=== PATIENT | male | born 1975 | race Caucasian/White ===

== ENCOUNTER 2016-07-05 19:00 | Outpatient (CLI) | payer OTHER | END 2016-07-05 19:01 | disposition home or self-care (01) | DX: M79.605 Pain in left leg (principal); M79.604 Pain in right leg; S80.12XA Contusion of left lower leg, initial encounter; S80.11XA Contusion of right lower leg, initial encounter ==

== ENCOUNTER 2020-06-02 08:00 | Outpatient (CLI) | payer MEDICAID, OTHER ==
[2020-06-02 18:05] LABS: BASOPHILS # (AUTO) 0.1 10^3/uL (0.0-0.1); BASOPHILS % (AUTO) 1.6 %; EOSINOPHILS # (AUTO) 0.1 10^3/uL (0.0-0.7); EOSINOPHILS % (AUTO) 1.9 %; HGB - HEMOGLOBIN 14.2 g/dL (14.0-18.0); LYMPHOCYTES # (AUTO) 1.7 10^3/uL (1.5-3.5); LYMPHOCYTES % (AUTO) 29.6 %; MEAN CORPUSCULAR HEMOGLOBIN 33.3 pg (27.0-31.0); MEAN CORPUSCULAR HGB CONC 33.4 g/dL (32.0-36.0); MEAN CORPUSCULAR VOLUME 99.8 fL (80.0-94.0); MONOCYTES # (AUTO) 0.4 10^3/uL (0.0-1.0); MONOCYTES % (AUTO) 7.6 %; NEUTROPHILS # (AUTO) 3.3 10^3/uL (1.5-6.6); NEUTROPHILS % (AUTO) 58.9 %; PLT - PLATELET COUNT 256 10^3/uL (130-450); RED BLOOD COUNT 4.26 10^6/uL (4.70-6.10); RED CELL DISTRIBUTION WIDTH 12.9 % (12.0-15.0); WHITE BLOOD COUNT 5.7 x10^3/uL (4.8-10.8)
[2020-06-02 18:24] LABS: ALBUMIN 3.7 g/dL (3.2-5.5); ALBUMIN/GLOBULIN RATIO 1.3 (1.0-2.2); ALKALINE PHOSPHATASE 84 IU/L (42-121); ALT ALANINE AMINOTRANSFERASE 44 IU/L (10-60); AMYLASE 40 U/L (28-100); AST ASPARTATE AMINOTRANSFERASE 62 IU/L (10-42); BUN - BLOOD UREA NITROGEN 14 mg/dL (6-20); CALCIUM 8.7 mg/dL (8.5-10.3); CARBON DIOXIDE - CO2 21 mmol/L (21-32); CHLORIDE 105 mmol/L (101-111); CHOL/HDL RATIO 5.2 (<5.0); CHOLESTEROL 201 mg/dL; GLUCOSE 101 mg/dL (70-100); HDL CHOLESTEROL 39 mg/dL; LIPASE 48 U/L (22-51); SODIUM 134 mmol/L (135-145); TOTAL PROTEIN 6.6 g/dL (6.7-8.2)
[2020-06-02 18:53] LABS: LDL CHOLESTEROL,DIRECT 76 mg/dL; LDLD/HDL RATIO 1.9 (<3.6)
[2020-06-02 20:45] LABS: HEMOGLOBIN A1c% 5.5 % (4.27-6.07)
== END 2020-06-02 23:59 | disposition home or self-care (01) ==
LOC: LAB.WCP 08:00
PROVIDERS: ATTEND Registered Nurse
DX: R73.01 Impaired fasting glucose (principal); E78.5 Hyperlipidemia, unspecified; I10 Essential (primary) hypertension; F10.20 Alcohol dependence, uncomplicated; K21.9 Gastro-esophageal reflux disease without esophagitis; R63.5 Abnormal weight gain; R11.2 Nausea with vomiting, unspecified; F17.200 Nicotine dependence, unspecified, uncomplicated
CPT/HCPCS: 36415; 80053; 80061; 82150; 83036; 83690; 83721; 84443; 85025

== ENCOUNTER 2020-06-02 15:37 | Outpatient (CLI) | payer MEDICAID ==
--- NOTE | 2020-06-03 14:58 | XRAY Report ---
PROCEDURE: Abdomen 2 View X-Ray INDICATIONS: NAUSEA AND VOMITING TECHNIQUE: 1 view of the abdomen were acquired. COMPARISON: None FINDINGS: Surgical changes and devices: None. Bowel: No pneumoperitoneum. The bowel gas pattern is normal. Scattered stool is present. Soft tissues: No masses; visualized solid organ contours appear normal in size. No suspicious abdom inal calcifications. Bones: No suspicious bony abnormalities. IMPRESSION: Scattered stool without obstruction. Reviewed by: Homa Chinchilla MD on 06/03/2020 2:56 PM [facility] Approved by: Homa Chinchilla MD on 06/03/2020 2:56 PM [facility] Station ID: [id number]
== END 2020-06-02 15:38 | disposition home or self-care (01) ==
LOC: DI.N 15:37
PROVIDERS: ATTEND Registered Nurse
DX: R11.2 Nausea with vomiting, unspecified (principal); E78.5 Hyperlipidemia, unspecified; I10 Essential (primary) hypertension; R73.01 Impaired fasting glucose; K21.9 Gastro-esophageal reflux disease without esophagitis; R63.5 Abnormal weight gain; F10.20 Alcohol dependence, uncomplicated; F17.200 Nicotine dependence, unspecified, uncomplicated
CPT/HCPCS: 36415; 80053; 80061; 82150; 83036; 83690; 83721; 84443; 85025

== ENCOUNTER 2020-08-30 09:50 | Day surgery (SDC) | payer OTHER, MEDICAID ==
--- NOTE | 2020-08-30 10:31 | ANESTHESIA ---
Pre-Anesthesia VS, & Labs - Diagnosis change in bowel habits - Procedure colonoscopy Vital Signs: Temp Pulse Resp BP Pulse Ox 36.3 C L 103 H 16 135/79 H 97 08/30/20 10:16 08/30/20 10:16 08/30/20 10:16 08/30/20 10:16 08/30/20 10:16 Height: 6 ft Weight (kg): 112.3 kg Body Mass Index: 33.5 BMI Classification: Obese - NPO >8 hours Home Medications and Allergies Home Medications: Ambulatory Orders Atorvastatin [Lipitor] 20 mg PO DAILY PM 08/27/20 Chlorthalidone 12.5 mg PO DAILY 08/27/20 Lisinopril [Zestril] 20 mg PO DAILY PM 08/27/20 Losartan [Cozaar] 50 mg PO DAILY PM 08/27/20 buPROPion HCL [Bupropion Xl] 150 mg PO DAILY 08/27/20 Atorvastatin [Lipitor] 20 mg PO DAILY PM 08/27/20 Chlorthalidone 12.5 mg PO DAILY 08/27/20 Lisinopril [Zestril] 20 mg PO DAILY PM 08/27/20 Losartan [Cozaar] 50 mg PO DAILY PM 08/27/20 buPROPion HCL [Bupropion Xl] 150 mg PO DAILY 08/27/20 Allergies/Adverse Reactions: Allergies Allergy/AdvReac Type Severity Reaction Status Date / Time Penicillins Allergy Severe Nausea Verified 08/27/20 13:52 Seafood Allergy Anaphylaxis Uncoded 08/27/20 13:52 Anes History & Medical History - Anesthetic History Anesthesia Complications: reports: No previous complications Family history of Anesthesia Complications: Denies Family history of Malignant Hyperthermia: Denies - Medical History Cardiovascular: reports: Hypertension, High cholesterol Pulmonary: reports: None Gastrointestinal: reports: Other Urinary: reports: None Musculoskeletal: reports: None Endocrine/Autoimmune: reports: None Skin: reports: None Smoking Status: Current every day smoker - Surgical History General: reports: Hiatal hernia repair Exam General: Alert, Oriented x3, Cooperative Dental: WNL Mouth Openin Fingerbreadth Neck Mobility: Normal Mallampati classification: II Thyromental Distance: 4-6 cm Respiratory: Lungs clear Cardiovascular: Regular rate Abdomen: Normal bowel sounds Extremities: No clubbing Neurological: Normal gait Mental/Cognitive Status: Alert/Oriented X3 Cognitive Status: Within normal limits Plan Anesthesia Type: General, Total IV Consent for Procedure(s) Verified and Reviewed: Yes Code Status: Attempt Resuscitation ASA classification: 2-Mild systemic disease Is this case an emergency?: No
[2020-08-30] MEDS ORDERED: fentaNYL 100 MCG/2 ML VIAL IVP PRN (10:32)
[2020-08-30] MEDS ORDERED: ePHEDrine 50 MG/ML VIAL IVP PRN (10:32)
[2020-08-30] MEDS ORDERED: ATROPINE ABBOJECT 1 MG/10 ML SYRINGE IVP PRN (10:32)
[2020-08-30] MEDS ORDERED: NALOXONE 0.4 MG/ML VIAL IVP PRN (10:32)
[2020-08-30] MEDS ORDERED: HYDROmorphone 0.5 MG/0.5 ML SYRINGE IVP PRN (10:32)
[2020-08-30] MEDS ORDERED: ONDANSETRON 4 MG/2 ML VIAL IVP PRN (10:32)
[2020-08-30] MEDS ORDERED: MORPHINE 2 MG/ML CARPUJECT IVP PRN (10:32)
[2020-08-30] MEDS ORDERED: LIDOCAINE-MPF 2% 5 ML VIAL ONE (10:51)
[2020-08-30] MEDS ORDERED: PROPOFOL 500 MG/50 ML 500 MG/50 ML VIAL ONE (10:51)
[2020-08-30] MEDS ORDERED: MIDAZOLAM 2 MG/2 ML VIAL ONE (10:51)
[2020-08-30] MEDS ORDERED: LACTATED RINGERS 1,000 ML IV SCH (11:00)
--- NOTE | 2020-08-30 11:07 | HISTORY & PHYSICAL EXAMINATION ---
Chief Complaint - Chief Complaint Chief Complaint: sister from colon cancer History of Present Illness - History Obtained From Records Reviewed: yes History obtained from: pt Exam Limitations: none - History of Present Illness HPI Comment/Other: Family history early onset colon cancer. Genetics unknown History - Past Medical History Cardiovascular: reports: Hypertension, High cholesterol Respiratory: reports: None Endocrine/Autoimmune: reports: None GI: reports: Other : reports: None HEENT: reports: None Musculoskeletal: reports: None Derm: reports: None MRSA Hx?: No - Past Surgical History General: reports: Hiatal hernia repair - POLST Patient has POLST: No Meds/Allgy - Home Medications Home Medications: Ambulatory Orders Medication Instructions Recorded Confirmed Atorvastatin [Lipitor] 20 mg PO DAILY PM 08/27/20 08/27/20 Chlorthalidone 12.5 mg PO DAILY 08/27/20 08/27/20 Lisinopril [Zestril] 20 mg PO DAILY PM 08/27/20 08/27/20 Losartan [Cozaar] 50 mg PO DAILY PM 08/27/20 08/27/20 buPROPion HCL [Bupropion Xl] 150 mg PO DAILY 08/27/20 08/27/20 - Allergies Allergies/Adverse Reactions: Allergies Allergy/AdvReac Type Severity Reaction Status Date / Time Penicillins Allergy Severe Nausea Verified 08/27/20 13:52 Seafood Allergy Anaphylaxis Uncoded 08/27/20 13:52 Review of Systems - Constitutional Constitutional: reports: Fatigue (10 pt ros as above otherwise unremarkable) Exam - Vital Signs Reviewed Vital Signs: Yes Vital Signs: Vital Signs x48h Temp Pulse Resp BP Pulse Ox 08/30/20 10:16 36.3 C L 103 H 16 135/79 H 97 - Physical Exam General Appearance: positive: No acute distress, Alert Eyes Bilateral: positive: Normal inspection, PERRL, EOMI ENT: positive: No signs of dehydration Neck: positive: Nml inspection, No JVD Respiratory: positive: No respiratory distress, Breath sounds nml Cardiovascular: positive: Regular rate & rhythm Abdomen: positive: Non-tender, No distention Neurologic/Psychiatric: positive: Oriented x3 Conclusion/Plan - Problem List (1) FHx: colon cancer Conclusion/Plan: plan colonoscopy. parq held and consent obtained
[2020-08-30] MEDS ORDERED: PROPOFOL 200 MG/20 ML VIAL IVP ONE ×2 (11:26→11:39)
[2020-08-30] MEDS ORDERED: LACTATED RINGERS 1,000 ML IV ONE (12:00)
[2020-08-30 12:31] VITALS: BP 110/63
--- NOTE | 2020-08-30 12:44 | ANESTHESIA POST OP EVALUATION ---
Anesthesia Post Eval - Post Anesthesia Eval Vitals: Last Vital Signs Temp 36.5 C 08/30/20 12:25 Pulse 89 08/30/20 12:25 Resp 16 08/30/20 12:25 BP 110/63 08/30/20 12:25 Pulse Ox 97 08/30/20 12:25 CV Function Including HR & BP: Stable Pain Control: Satisfactory Nausea & Vomiting: Negative Mental Status: Baseline Respiratory Status: Airway Patent Hydration Status: Satisfactory Anesthesia Complications: None
== END 2020-08-30 09:51 | disposition home or self-care (01) ==
LOC: SDS 09:50
PROVIDERS: ATTEND Internal Medicine Gastroenterology
PROC: 0DBL8ZZ Excision of Transverse Colon, Via Natural or Artificial Opening Endoscopic (ICD-10-PCS; 2020-08-30)
PROC: 0DBK8ZX Excision of Ascending Colon, Via Natural or Artificial Opening Endoscopic, Diagnostic (ICD-10-PCS; principal; 2020-08-30 11:00)
DX: R19.4 Change in bowel habit (principal); D12.2 Benign neoplasm of ascending colon; D12.3 Benign neoplasm of transverse colon; D17.79 Benign lipomatous neoplasm of other sites; I10 Essential (primary) hypertension; F10.20 Alcohol dependence, uncomplicated; E66.9 Obesity, unspecified; Z68.33 Body mass index [BMI] 33.0-33.9, adult; F17.200 Nicotine dependence, unspecified, uncomplicated; Z80.0 Family history of malignant neoplasm of digestive organs
CPT/HCPCS: 45385; J7120

== ENCOUNTER 2022-02-22 17:00 | Outpatient (CLI) | payer OTHER, MEDICAID ==
[2022-02-22 20:37] LABS: BASOPHILS # (AUTO) 0.1 10^3/uL (0.0-0.1); BASOPHILS % (AUTO) 1.3 %; EOSINOPHILS # (AUTO) 0.1 10^3/uL (0.0-0.7); EOSINOPHILS % (AUTO) 1.3 %; HCT - HEMATOCRIT 42.9 % (42.0-52.0); HGB - HEMOGLOBIN 15.5 g/dL (14.0-18.0); LYMPHOCYTES % (AUTO) 28.4 %; MEAN CORPUSCULAR HEMOGLOBIN 35.2 pg (27.0-31.0); MEAN CORPUSCULAR HGB CONC 36.1 g/dL (32.0-36.0); MEAN CORPUSCULAR VOLUME 97.5 fL (80.0-94.0); MEAN PLATELET VOLUME 9.7 fL (7.4-11.4); MONOCYTES # (AUTO) 0.6 10^3/uL (0.0-1.0); MONOCYTES % (AUTO) 8.2 %; NEUTROPHILS # (AUTO) 4.2 10^3/uL (1.5-6.6); NEUTROPHILS % (AUTO) 60.5 %; PLT - PLATELET COUNT 182 10^3/uL (130-450)
[2022-02-22 20:52] LABS: ALBUMIN 3.8 g/dL (3.2-5.5); ALBUMIN/GLOBULIN RATIO 1.2 (1.0-2.2); ALKALINE PHOSPHATASE 99 IU/L (42-121); ALT ALANINE AMINOTRANSFERASE 114 IU/L (10-60); AST ASPARTATE AMINOTRANSFERASE 158 IU/L (10-42); BILIRUBIN,TOTAL 1.4 mg/dL (0.2-1.0); BUN - BLOOD UREA NITROGEN 13 mg/dL (6-20); CALCIUM 8.8 mg/dL (8.5-10.3); CARBON DIOXIDE - CO2 27 mmol/L (21-32); CHLORIDE 97 mmol/L (101-111); CHOL/HDL RATIO 8.8 (<5.0); CHOLESTEROL 228 mg/dL; GFR - MDRD 80 (>89); GLUCOSE 103 mg/dL (70-100); HDL CHOLESTEROL 26 mg/dL; POTASSIUM 3.7 mmol/L (3.5-5.0); SODIUM 132 mmol/L (135-145); TOTAL PROTEIN 7.1 g/dL (6.7-8.2); TRIGLYCERIDES 886 mg/dL
[2022-02-22 21:04] LABS: THYROID STIMULATING HORMONE 1.17 uIU/mL (0.34-5.60)
[2022-02-22 21:12] LABS: LDL CHOLESTEROL,DIRECT 48 mg/dL; LDLD/HDL RATIO 1.8 (<3.6)
== END 2022-02-22 17:01 | disposition home or self-care (01) ==
LOC: LAB.N 17:00
PROVIDERS: ATTEND Registered Nurse
DX: I10 Essential (primary) hypertension (principal); R73.01 Impaired fasting glucose; E78.5 Hyperlipidemia, unspecified
CPT/HCPCS: 36415; 80053; 80061; 83721; 84443; 85025

== ENCOUNTER 2023-04-01 02:03 | Outpatient (CLI) | payer OTHER | END 2023-04-01 23:59 | disposition critical access hospital (66) | LOC: EMS 02:03 | DX: R10.9 Unspecified abdominal pain (principal); R14.0 Abdominal distension (gaseous); R07.9 Chest pain, unspecified | CPT/HCPCS: A0425; A0427 ==

== ENCOUNTER 2023-04-01 02:17 | Emergency (ER) | payer OTHER ==
--- NOTE | 2023-04-01 02:30 | ED Physician Documentation ---
PD HPI ABD PAIN - Stated complaint Stated Complaint: ABD PAIN, CP - History obtained from History obtained from: Patient, Family () - History of Present Illness Timing - onset: Yesterday Timing - duration: Days (1) Timing - details: Gradual onset, Still present Quality: Cramping, Aching, Pain Location: Periumbilical, Suprapubic Radiation: Chest (had had lower abd cramping pain and pressure since yesterday, increasing, and past few hours also feeling pressure in chest. Has had cough the past 4-5 days with some wheezing feeling at times. Malaise and general fatigue several days as well, with less appetite. No vomiting.) Improved by: No: Eating, BM Worsened by: Eating, Moving, Palpation Associated symptoms: Loss of appetite. No: Fever, Nausea (but no appetite for few days), Diarrhea, Constipation, Dysuria Similar symptoms before: Has not had sx before Recently seen: Not recently seen Review of Systems Constitutional: reports: Myalgias, Fatigue. denies: Fever, Chills Nose: denies: Rhinorrhea / runny nose, Congestion Throat: denies: Sore throat Cardiac: reports: Pedal edema (some in left leg for past week.). denies: Palpitations, Calf pain Respiratory: reports: Dyspnea, Cough, Wheezing (mild intermittent for few days) GI: reports: Abdominal Pain, Nausea. denies: Vomiting, Constipation, Diarrhea : denies: Dysuria Skin: denies: Rash, Lesions PD PAST MEDICAL HISTORY - Past Medical History Cardiovascular: Hypertension, High cholesterol, Deep vein thrombosis (several years ago) Respiratory: None Neuro: None Endocrine/Autoimmune: None GI: Other : None HEENT: None Musculoskeletal: None Derm: None - Past Surgical History Past Surgical History: Yes General: Hiatal hernia repair - Present Medications Home Medications: Ambulatory Orders Medication Instructions Recorded Confirmed Atorvastatin [Lipitor] 20 mg PO DAILY PM 08/27/20 08/27/20 Chlorthalidone 12.5 mg PO DAILY 08/27/20 04/01/23 Lisinopril [Zestril] 20 mg PO DAILY PM 08/27/20 08/27/20 Losartan [Cozaar] 50 mg PO DAILY PM 08/27/20 04/01/23 buPROPion HCL [Bupropion Xl] 150 mg PO DAILY 08/27/20 08/27/20 Famotidine [Pepcid] 20 mg PO DAILY #20 tablet 04/01/23 Ondansetron Odt [Zofran] 4 mg TL Q6H PRN #10 tablet 04/01/23 Simethicone [Gas Relief] 180 mg PO BID PRN #16 cap 04/01/23 Sucralfate [Carafate] 1 gm PO ACHS #24 tablet 04/01/23 - Allergies Allergies/Adverse Reactions: Allergies Allergy/AdvReac Type Severity Reaction Status Date / Time Penicillins Allergy Severe Nausea Verified 08/27/20 13:52 Seafood Allergy Anaphylaxis Uncoded 08/27/20 13:52 - Living Situation Living Situation: reports: With spouse/s.o. Living Arrangement: reports: At home - Social History Does the pt smoke?: Yes Smoking Status: Current every day smoker Does the pt drink ETOH?: Yes ETOH Use: Other (regular alcohol intake. ) Does the pt have substance abuse?: No - Immunizations Immunizations are current?: Yes - POLST Patient has POLST: No PD ED PE NORMAL - Vitals Vital signs reviewed: Yes - General General: Alert and oriented X 3, Well developed/nourished - HEENT HEENT: Pharynx benign - Neck Neck: Supple, no meningeal sign, No adenopathy - Cardiac Cardiac: RRR, No murmur - Respiratory Respiratory: No respiratory distress. No: Clear bilaterally (faint exp wheezing noted, more to right than left. No coarse sounds. ) - Abdomen Abdomen: No organomegaly, Other (distended abd with some taughtness. Tender lower abd mid and suprapubic particularly. Some in epigastric area. ). No: Normal bowel sounds (increased) - Back Back: No CVA TTP - Derm Derm: Normal color, Warm and dry - Extremities Extremities: Other (mild edema left lower leg and ankle. Not tender in calf. ) - Neuro Neuro: Alert and oriented X 3, No motor deficit, Normal speech Results - Vitals Vitals: Oxygen O2 Source Room air - EKG (time done) 02:29 EKG releavant findings:: EKG personally interpreted by author of this note. Relevant findings are: Rate: Rate (enter#) (100) Rhythm: NSR [place]: Normal Intervals: Normal [place] QRS: Normal Ischemia: Normal ST segments, T wave inversion (mild/nonspecific, anterior leds mainly but somewhat difusely. ). No: ST elevation c/w ischemia, ST depression - Labs Labs: Laboratory Tests 04/01/23 04/01/23 04/01/23 02:27 02:27 02:27 WBC 9.1 RBC 3.91 L Hgb 14.3 Hct 39.4 L MCV 100.8 H MCH 36.6 H MCHC 36.3 H RDW 13.2 Plt Count 230 MPV 9.6 Neut # (Auto) 4.8 Lymph # (Auto) 3.1 [place] # (Auto) 0.9 Eos # (Auto) 0.3 Baso # (Auto) 0.1 Absolute Nucleated RBC 0.00 Nucleated RBC % 0.0 Sodium 133 L Potassium 2.7 L Chloride 99 L Carbon Dioxide 22 Anion Gap 12.0 BUN 12 Creatinine 0.9 Estimated GFR (MDRD) 90 Glucose 152 H Calcium 9.1 Magnesium 1.6 L Total Bilirubin 0.5 AST 49 H ALT 51 Alkaline Phosphatase 54 Troponin I High Sens 5.4 B-Natriuretic Peptide 29 Total Protein 6.7 Albumin 4.4 Globulin 2.3 Albumin/Globulin Ratio 1.9 Lipase 65 Urine Color Urine Clarity Urine pH Ur Specific [place] Urine Protein Urine Glucose (UA) Urine Ketones Urine Occult Blood Urine Nitrite Urine Bilirubin Urine Urobilinogen Ur Leukocyte Esterase Ur Microscopic Review Urine Culture Comments Nasal Adenovirus (PCR) Nasal B. parapertussis DNA (PCR) Nasal Coronavir 229E PCR Nasal Coronavir HKU1 PCR Nasal Coronavir NL63 PCR Nasal Coronavir OC43 PCR Nasal Enterovir/Rhinovir PCR Nasal Influenza B PCR Nasal Influenza A PCR Nasal Parainfluen 1 PCR Nasal Parainfluen 2 PCR Nasal Parainfluen 3 PCR Nasal Parainfluen 4 PCR Nasal RSV (PCR) Nasal B.pertussis DNA PCR Nasal C.pneumoniae (PCR) Nasim Human Metapneumo PCR Nasal M.pneumoniae (PCR) Nasal SARS-CoV-2 (PCR) Ethyl Alcohol 210.5 04/01/23 04/01/23 03:00 03:00 WBC RBC Hgb Hct MCV MCH MCHC RDW Plt Count MPV Neut # (Auto) Lymph # (Auto) [place] # (Auto) Eos # (Auto) Baso # (Auto) Absolute Nucleated RBC Nucleated RBC % Sodium Potassium Chloride Carbon Dioxide Anion Gap BUN Creatinine Estimated GFR (MDRD) Glucose Calcium Magnesium Total Bilirubin AST ALT Alkaline Phosphatase Troponin I High Sens B-Natriuretic Peptide Total Protein Albumin Globulin Albumin/Globulin Ratio Lipase Urine Color YELLOW Urine Clarity CLEAR Urine pH 6.0 Ur Specific [place] <=1.005 Urine Protein NEGATIVE Urine Glucose (UA) NEGATIVE Urine Ketones NEGATIVE Urine Occult Blood NEGATIVE Urine Nitrite NEGATIVE Urine Bilirubin NEGATIVE Urine Urobilinogen 0.2 (NORMAL) Ur Leukocyte Esterase NEGATIVE Ur Microscopic Review NOT INDICATED Urine Culture Comments NOT INDICATED Nasal Adenovirus (PCR) NOT DETECTED Nasal B. parapertussis DNA (PCR) NOT DETECTED Nasal Coronavir 229E PCR NOT DETECTED Nasal Coronavir HKU1 PCR NOT DETECTED Nasal Coronavir NL63 PCR NOT DETECTED Nasal Coronavir OC43 PCR NOT DETECTED Nasal Enterovir/Rhinovir PCR NOT DETECTED Nasal Influenza B PCR NOT DETECTED Nasal Influenza A PCR NOT DETECTED Nasal Parainfluen 1 PCR NOT DETECTED Nasal Parainfluen 2 PCR NOT DETECTED Nasal Parainfluen 3 PCR NOT DETECTED Nasal Parainfluen 4 PCR NOT DETECTED Nasal RSV (PCR) NOT DETECTED Nasal B.pertussis DNA PCR NOT DETECTED Nasal C.pneumoniae (PCR) NOT DETECTED Nasim Human Metapneumo PCR NOT DETECTED Nasal M.pneumoniae (PCR) NOT DETECTED Nasal SARS-CoV-2 (PCR) NOT DETECTED Ethyl Alcohol - Rads (name of study) abd/pelvic CT Relevant Findings:: Prelim report reviewed (no acute intraabdominal abnormality.), EMP independent interpretation of test chest xray Relevant Findings:: Prelim report reviewed (no acute process. ), EMP independent interpretation of test (appears normal. ) PD Medical Decision Making - ED course Complexity details: reviewed results, re-evaluated patient, considered differential (initaly impression with some distension and pain, was for obstruction, perforation, ascites, internal bleeding, etc. Can get labs and CT scan to eval. Abd pain readiting to chest, so ECG, CXR trop as well.), d/w patient Reviewed Lab Results: CT abd and pelvis without acute process. No signs for obstruction, ascites, freeom fluid, or local infections. He did have some element of dyspnea and subsequently got CXR as well that was normal. Labs showing normal lipase, LFTs, glucose and renal funciton. Lytes showing low potassium and Magnesium. perhaps some symptoms from that. Otherwise consider gassiness of intestines or such. Normal CBC. Comment on CT was for cirrhotic appearing liver and pt does state long history of regular alcohol use. He is encouraged to seek medical help for alcohol treatment and cessation. Departure - Departure Disposition: 01 Home, Self Care Clinical Impression: Chest pain, Abdominal pain, Lack of appetite, Alcoholic cirrhosis of liver without ascites Condition: Stable Record reviewed to determine appropriate education?: Yes Prescriptions: Sucralfate [Carafate] 1 gm PO ACHS #24 tablet Simethicone [Gas Relief] 180 mg PO BID PRN #16 cap PRN Reason: Abdominal Pain Famotidine [Pepcid] 20 mg PO DAILY #20 tablet Ondansetron Odt [Zofran] 4 mg TL Q6H PRN #10 tablet PRN Reason: Nausea / Vomiting Comments: Your chest x-ray is clear without any signs of pneumonia nor heart failure nor fluid around the lungs. Your EKG does not show any injury pattern (heart attack) and blood test to look at heart attack/heart failure are both normal. I presume your chest discomfort likely relates to some irritation of the esophagus or stomach with radiation to the chest. I would suggest use of some antacids such as Maalox or Mylanta if needed periodically. In addition with your symptoms there as well as the abdominal symptoms, to help treat some presumed irritation of the stomach and gassiness in the intestines, I would suggest an acid reducing medicine of famotidine daily for the next couple of weeks. Also sucralfate at which is to help coat the esophagus and stomach as well. Use ondansetron/Zofran if needed for nausea. Your lack of appetite may be just a version of that and you could try to see if that improves your appetite. Overall I would suggest your symptoms likely sound like a viral type illness with the fatigue lack of appetite and just general unwellness. Hopefully this will improve over the next several more days. Blood test lima your basic blood count and electrolytes and such are looking good. Liver and kidney function appear normal. Your CT scan did not show any acute obvious abnormality. This obviously does not mean you do not have anything going on there but structurally nothing appeared abnormal (aside from some chronic scarring of your liver presumably from long-term alcohol use. This is called cirrhosis. The report describes the appearance of cirrhosis of your liver. There is no signs of liver failure per se with normal blood tests and no fluid buildup in the stomach (ascites)). You do want to decrease and stop your regular alcohol use so that it does not lead to further worsening of liver function in the future. I sent prescriptions for the above medicines to [facility] pharmacy. Recheck if not improving well over the next several days and return if worsening. Forms: PCP List Discharge Date/Time: 04/01/23 06:37
[2023-04-01 03:00] LABS: BASOPHILS # (AUTO) 0.1 10^3/uL (0.0-0.1); BASOPHILS % (AUTO) 1.2 %; EOSINOPHILS # (AUTO) 0.3 10^3/uL (0.0-0.7); EOSINOPHILS % (AUTO) 3.2 %; HCT - HEMATOCRIT 39.4 % (42.0-52.0); HGB - HEMOGLOBIN 14.3 g/dL (14.0-18.0); LYMPHOCYTES # (AUTO) 3.1 10^3/uL (1.5-3.5); LYMPHOCYTES % (AUTO) 33.6 %; MEAN CORPUSCULAR HEMOGLOBIN 36.6 pg (27.0-31.0); MEAN CORPUSCULAR HGB CONC 36.3 g/dL (32.0-36.0); MEAN CORPUSCULAR VOLUME 100.8 fL (80.0-94.0); MEAN PLATELET VOLUME 9.6 fL (7.4-11.4); MONOCYTES # (AUTO) 0.9 10^3/uL (0.0-1.0); MONOCYTES % (AUTO) 9.4 %; NEUTROPHILS # (AUTO) 4.8 10^3/uL (1.5-6.6); NEUTROPHILS % (AUTO) 52.4 %; PLT - PLATELET COUNT 230 10^3/uL (130-450); RED BLOOD COUNT 3.91 10^6/uL (4.70-6.10); RED CELL DISTRIBUTION WIDTH 13.2 % (12.0-15.0); WHITE BLOOD COUNT 9.1 x10^3/uL (4.8-10.8)
[2023-04-01 03:14] LABS: ALBUMIN 4.4 g/dL (3.2-5.5); ALBUMIN/GLOBULIN RATIO 1.9 (1.0-2.2); BILIRUBIN,TOTAL 0.5 mg/dL (0.2-1.0); CALCIUM 9.1 mg/dL (8.5-10.3); CREATININE 0.9 mg/dL (0.6-1.3); MAGNESIUM 1.6 mg/dL (1.7-2.3); POTASSIUM 2.7 mmol/L (3.5-4.5); TOTAL PROTEIN 6.7 g/dL (6.4-8.9)
[2023-04-01 03:16] LABS: BILIRUBIN,URINE NEGATIVE (NEGATIVE); GLUCOSE, URINE (UA) NEGATIVE (NEGATIVE); KETONES,URINE (UA) NEGATIVE (NEGATIVE); LEUKOCYTE ESTERASE, URINE NEGATIVE (NEGATIVE); NITRITE,URINE NEGATIVE (NEGATIVE); OCCULT BLOOD,URINE NEGATIVE (NEGATIVE); PROTEIN,URINE NEGATIVE (NEGATIVE); UROBILINOGEN,URINE 0.2 (NORMAL) E.U./dL (NORMAL)
[2023-04-01 03:23] LABS: CLARITY,URINE CLEAR (CLEAR)
[2023-04-01 03:26] LABS: ETOH - ETHANOL 210.5 mg/dL
[2023-04-01] MEDS: ONDANSETRON 4 MG/2 ML VIAL IVP STA (03:29)
[2023-04-01] MEDS: KETOROLAC 15 MG/ML VIAL IVP STA (03:30)
[2023-04-01] MEDS: MAG HYDROX/AL HYDROX/SIMETH 30 ML UDC PO STA (03:30)
[2023-04-01] MEDS: SODIUM CHLORIDE 0.9% 1,000 ML IV STA (03:31)
[2023-04-01 03:48] LABS: TROPONIN I HIGH SENSITIVITY 5.4 ng/L (2.3-19.7)
[2023-04-01 04:00] LABS: B. PARAPERTUSSIS- RESP PCR PAN NOT DETECTED; B. PERTUSSIS- RESP PCR PANEL NOT DETECTED; C. PNEUMONIAE- RESP PCR PANEL NOT DETECTED; CORONAVIRUS 229E-RESP PCR NOT DETECTED; CORONAVIRUS HKU1-RESP PCR NOT DETECTED; CORONAVIRUS NL63-RESP PCR NOT DETECTED; CORONAVIRUS OC43-RESP PCR NOT DETECTED; HUMAN METAPNEUMOVIRUS NOT DETECTED; INFLUENZA A- RESP PCR PANEL NOT DETECTED; INFLUENZA B - RESP PCR PANEL NOT DETECTED; M. PNEUMONIAE- RESP PCR PANEL NOT DETECTED; PARAINFLUENZA VIRUS 1 NOT DETECTED; PARAINFLUENZA VIRUS 2 NOT DETECTED; PARAINFLUENZA VIRUS 3 NOT DETECTED; PARAINFLUENZA VIRUS 4 NOT DETECTED; RHINOVIRUS/ENTEROVIRUS NOT DETECTED; RSV- RESP PCR PANEL NOT DETECTED; SARS-CoV-2 -RESP PCR PANEL NOT DETECTED
[2023-04-01] MEDS: POTASSIUM BICARB 25 MEQ TABLET PO STA (04:08)
[2023-04-01] MEDS: POTASSIUM CHLOR 10 MEQ/100 ML 10 MEQ/100 ML BAG IV ONE (04:09)
[2023-04-01] MEDS: iohexoL-300 100 ML VIAL IVP ONE (04:19)
[2023-04-01 05:04] VITALS: O2SAT 96
[2023-04-01 05:39] VITALS: BP 134/87
[2023-04-01] MEDS: SUCRALFATE 1 GM/10 ML UDC PO STA (06:12)
[2023-04-01] MEDS: SIMETHICONE CHEW 80 MG TABLET PO STA (06:12)
[2023-04-01] MEDS: ONDANSETRON ODT 4 MG Prepack 2 TL PRN (06:14)
--- NOTE | 2023-04-01 08:19 | CT Report ---
PROCEDURE: ABDOMEN/PELVIS W INDICATIONS: LLQ Abdominal pain, diverticulitis suspected CONTRAST: 100 ML OMNI 300 TECHNIQUE: After the administration of IV contrast, 5 mm thick sections acquired from the diaphragms to the symp hysis. 5 mm thick coronal and sagittal reformats were acquired. For radiation dose reduction, the f ollowing was used: automated exposure control, adjustment of mA and/or kV according to patient size. COMPARISON: Abdomen x-ray 06/02/2020 FINDINGS: Image quality: Excellent. Lung bases and heart: Unremarkable. Liver: Steatosis is present. Minimal appearance of nodularity is present. Gallbladder and biliary tree: Contracted but otherwise unremarkable Spleen: No splenomegaly. Pancreas: No pancreatic ductal dilation. Adrenals: No adrenal nodule. Kidneys and ureters: No hydronephrosis. No renal cystic lesion which requires follow up. No solid mas s. Bowel and peritoneum: No bowel distension. No pathologic free fluid. Appendix is normal. Lymph nodes: No central or retroperitoneal adenopathy. Vessels: No infrarenal aortic aneurysm. PELVIS Reproductive organs: Unremarkable. Bladder: No abnormal wall thickening, accounting for underdistension. Pelvic lymph nodes: No pelvic adenopathy by size criteria. Bones: No aggressive osseous abnormality. Other: Fat-containing bilateral inguinal hernia. IMPRESSION: No acute intra-abdominal or pelvic process. Hepatic steatosis with minimal appearance of nodularity suggestive of possible early cirrhotic appear ance. The above findings are concordant with preliminary report. Reviewed by: Homa Chinchilla MD on 04/01/2023 8:18 AM PST Approved by: Homa Chinchilla MD on 04/01/2023 8:18 AM PST Station ID: [id number]
--- NOTE | 2023-04-01 08:58 | XRAY Report ---
PROCEDURE: Chest 1 View X-Ray INDICATIONS: chest pain TECHNIQUE: One view of the chest was acquired. COMPARISON: None. FINDINGS: Surgical changes and devices: None. Lungs and pleura: No pleural effusions or pneumothorax. Lungs are clear. Mediastinum: Mediastinal contours appear normal. Heart size is normal. Bones and chest wall: No suspicious bony lesions. Overlying soft tissues appear unremarkable. IMPRESSION: No acute cardiopulmonary process. The above findings are concordant with preliminary report. Reviewed by: Homa Chinchilla MD on 04/01/2023 8:57 AM [facility] Approved by: Homa Chinchilla MD on 04/01/2023 8:57 AM [facility] Station ID: [id number]
== END 2023-04-01 06:37 | disposition home or self-care (01) ==
LOC: EDUNIT# → ED 02:17
DX: K70.30 Alcoholic cirrhosis of liver without ascites (principal); R07.89 Other chest pain; R10.33 Periumbilical pain; R63.0 Anorexia; I10 Essential (primary) hypertension; E78.00 Pure hypercholesterolemia, unspecified; F17.200 Nicotine dependence, unspecified, uncomplicated; Z20.822 Contact with and (suspected) exposure to COVID-19; Z79.899 Other long term (current) drug therapy
CPT/HCPCS: 36415; 80053; 80320; 81001; 81003; 83690; 83735; 83880; 84484; 85025; 87086; 87633; 99284